=== PATIENT | female | born 1940 | race African-American/Black ===

== ENCOUNTER 2020-11-05 10:50 | Emergency (ER) | payer MEDICARE ==
[~2020-11-05] VITALS: Ht 165.1 cm; Wt 75.9 kg
[2020-11-05 10:54] VITALS: BP 146/62; Ht 165.1 cm; Wt 75.9 kg
[2020-11-05] MEDS ORDERED: NORVASC5 MG PO (11:02)
[2020-11-05] MEDS ORDERED: VITAMIN D31250 MCG PO (11:02)
[2020-11-05] MEDS ORDERED: AZELASTINE137 MCG/0. NASAL (11:02)
[2020-11-05] MEDS ORDERED: SOLARAZE100 GM TOPICAL (11:03)
[2020-11-05] MEDS ORDERED: PLAVIX75 MG PO (11:03)
[2020-11-05] MEDS ORDERED: ESTRACE 0.5 MG0.5 MG PO (11:03)
[2020-11-05] MEDS ORDERED: FLUTICASONE PRO16 GM NASAL (11:04)
[2020-11-05] MEDS ORDERED: ZANAFLEX2 M1 PO (11:04)
[2020-11-05] MEDS ORDERED: NEURONTIN 300300 MG PO (11:04)
[2020-11-05] MEDS ORDERED: SUPER B COMPLE1 EAC1 PO (11:04)
[2020-11-05] MEDS ORDERED: HYDROXYCHLOROQ200 MG PO (11:04)
[2020-11-05] MEDS ORDERED: VITAMIN E100 UNIT (11:05)
[2020-11-05] MEDS ORDERED: ZYRTEC10 MG (11:05)
[2020-11-05] MEDS ORDERED: TORADOL10 MG PO (12:45)
== END 2020-11-05 13:13 | disposition home or self-care (01) ==
LOC: D.ER 10:50
DX: M79.661 Pain in right lower leg (principal)